=== PATIENT | female | born 1950 | race Caucasian/White ===

== ENCOUNTER 2016-04-28 09:31 | Day surgery (SDC) | payer MEDICARE ==
[~2016-04-28 09:31] MED LIST: RINGERS SOLUTION,LACTATED 1,000 ML IV PRN
[2016-04-28] MEDS ORDERED: RINGERS SOLUTION,LACTATED 1,000 ML IV ONE (10:07)
[2016-04-28] MEDS ORDERED: PANTOPRAZOLE SODIUM 40 MG/100 ML PIGGYBACK IV ONE (11:47)
[2016-04-28 12:07] VITALS: BP 150/67
[2016-04-28] MEDS ORDERED: PANTOPRAZOLE SODIUM 40 MG in NORMAL SALINE 100 ML IV ONE (12:15)
--- NOTE | 2016-04-28 20:23 | OR ---
Operative Report - Dictated Report Narrative: Operative Report Date of operation: 04/28/2016 Preoperative diagnosis: Abnormal stomach on CT scan, epigastric pain and bloating, no prior dedicated colon studies Postoperative diagnosis: Small hiatal hernia. Significant gastritis with evidence of chronic bleeding (pathology and CLOtest pending). Normal colonoscopy Operation: EGD with gastric and duodenal biopsies. Colonoscopy Surgeon: Dr Fernandez Anesthesia: [employer] CRNA Indications for procedure: The patient is a 66-year-old female referred by Dr. Martinez. The patient has had epigastric pain and bloating. CT scan suggested gastric mucosal thickening. The patient has had no previous dedicated colon studies. There is no family history of colon cancer. The patient has frequent diarrhea. Findings: Small hiatal hernia. Significant pangastritis with evidence of chronic bleeding (pathology and CLOtest pending. Duodenal biopsy pending. Capacious colon but normal exam to the cecum. Narrative of procedure: The patient was identified preoperatively, and prior to the administration of anesthetic a multidisciplinary timeout was observed EGD: With the patient in the recumbent position, a bite-block was placed, intravenous sedation was administered, and the patient's eyes covered with a towel. The flexible fiberoptic gastroscope was advanced into the posterior pharynx which appeared normal. The supraglottic larynx appeared normal. The cords appeared normal, moved well, and opposed in the midline. The scope was advanced under direct vision into the proximal esophagus which appeared normal. The esophagus appeared freely distensible with normal mucosa. The esophageal mucosa appeared normal down to the gastroesophageal junction which was sharp and noninflamed. There was a small sliding hiatal hernia. The GE junction appeared normally distensible. The scope was advanced into the stomach proper which was insufflated with air. Immediately apparent was a significant pangastritis with friability and flecks of abril blood and prepyloric submucosal hemorrhage. A retroflexed view of the gastric fundus revealed no additional lesions but did demonstrate a small sliding hiatal hernia. The scope was redirected toward the pylorus. The pylorus appeared patent. The scope was advanced into the duodenal bulb which appeared slightly erythematous but otherwise normal. The scope was advanced further to the horizontal portion of the duodenum which appeared normal, specifically the villous architecture appeared well preserved and clear bile was present. A biopsy of player services representative duodenal mucosa was obtained to rule out celiac disease. The biopsy site was seen to be hemostatic. The scope was slowly withdrawn through the duodenal bulb with confirmation that no active ulcer was present. The scope was withdrawn into the stomach and player services representative biopsies of gastric mucosa obtained for CLOtest and pathology. The biopsy sites were seen to be hemostatic. The insufflated air was removed, the scope withdrawn from the patient, and this portion of the procedure terminated. COLONOSCOPY: The patient was then placed in the left lateral position, and the perineum was inspected. There was no evidence of pilonidal disease or skin breakdown. The external appearance of the anus was normal. Sphincter tone was good. The flexible fiberoptic colonoscope was inserted into the rectum which was insufflated with air. The rectal mucosa and submucosal vascular pattern appeared normal, the prep was seen to be complete. The scope was advanced through the sigmoid colon, up the descending colon, and around the splenic flexure where the triangular haustral architecture of the transverse colon was seen. The scope was advanced across the transverse colon, around the hepatic flexure to the cecum, where the confluence of tenia and the ileocecal valve were identified. The mucosa at this level appeared normal. The scope was then slowly withdrawn in a circular fashion so that all aspects of colonic mucosa were inspected. The colon was somewhat capacious and caliber relatively normal in course. The haustral architecture appeared well preserved throughout with no evidence of external compression. The mucosa and submucosal vascular pattern appeared normal, specifically there was no gross evidence to suggest colitis or inflammatory bowel disease and no AV malformations were seen. No diverticulosis was demonstrated. No polyps were encountered. The scope was gradually withdrawn to the level of the rectum. As much insufflated air as possible was removed. The scope was withdrawn from the patient and the procedure terminated. The patient tolerated the anesthetic and procedure well without complication and was transferred back to the ambulatory surgery area awake and in stable condition. The patient remained stable throughout a period of postoperative observation. She denied abdominal discomfort, was able to tolerate by mouth intake, and was up without assistance. I shared the operative findings with the patient and she was given copies of the photographs which appear in the medical record. She was discharged home with instructions not to engage in hazardous activity today , but may resume normal activity tomorrow, and advance diet as tolerated. She is to continue those medications as listed in the history and physical exam. I made arrangements to contact her with the biopsy reports and will make additional recommendations for treatment and follow-up based upon those results. RECOMMENDATION: She should have a digital rectal exam/occult blood determination at the time of any pelvic exam with tentative colon surveillance in 10 years depending upon findings and symptoms Reviewed and electronically signed
== END 2016-04-28 09:32 | disposition home or self-care (01) ==
LOC: AMB 09:31
PROVIDERS: ATTEND Surgery
PROC: 0DB68ZX Excision of Stomach, Via Natural or Artificial Opening Endoscopic, Diagnostic (ICD-10-PCS; 2016-04-28)
PROC: 0DJD8ZZ Inspection of Lower Intestinal Tract, Via Natural or Artificial Opening Endoscopic (ICD-10-PCS; principal; 2016-04-28 10:50)
PROC: 0DB98ZX Excision of Duodenum, Via Natural or Artificial Opening Endoscopic, Diagnostic (ICD-10-PCS; 2016-04-28 10:50)
DX: Z12.11 Encounter for screening for malignant neoplasm of colon (principal); K29.51 Unspecified chronic gastritis with bleeding; K44.9 Diaphragmatic hernia without obstruction or gangrene; I48.91 Unspecified atrial fibrillation; I10 Essential (primary) hypertension; D64.9 Anemia, unspecified; Z68.30 Body mass index [BMI] 30.0-30.9, adult
CPT/HCPCS: 43239; 87081; G0121

== ENCOUNTER 2016-07-18 09:57 | Observation (INO) | payer MEDICARE ==
[2016-07-18] MEDS ORDERED: KETOROLAC TROMETHAMINE 30 MG/ML VIAL IV ONE (10:15)
[2016-07-18] MEDS ORDERED: NORMAL SALINE 1,000 ML IV ONE (10:15)
--- NOTE | 2016-07-18 10:16 | ERNOTE ---
Abdominal HPI - Narrative Date of Service: 07/18/16 - General Chief Complaint: Abdominal Pain Time Seen by Provider: 07/18/16 10:11 Source: patient, RN notes reviewed Exam Limitations: clinical condition - Immun/Allergies/Home Medications Immunizatons: IMMUNIZATION HX Immunizations Up to Date Yes History of Influenza Vaccine Yes Hx Pneumococcal Vaccination Yes Allergies/Adverse Reactions: Allergies Penicillins Allergy (Mild, Verified 07/18/16 10:47) Hives Home Medications: HOME MEDICATIONS Aspirin [Aspirin Enteric Coated] 81 mg PO DAILY 04/23/16 [Last Taken Unknown] Lisinopril/Hydrochlorothiazide [Zestoretic 20-25 mg Tablet] 1 each PO DAILY [Last Taken Unknown] Metoprolol Succinate [Toprol Xl] 100 mg PO HS 04/23/16 [Last Taken Unknown] Omega3/Dha/Epa/Fish Oil/Vit D3 [Fish Oil + Vitamin D-3 Softgel] 1 each PO BID [Last Taken Unknown] Pantoprazole Sodium [Protonix] 40 mg PO DAILY 07/18/16 [Last Taken Unknown] - Pain Score Pain Score #1 Pain Score: 10 Abdominal Pain Onset Location: RLQ Pain Radiation: flank - History of Present Illness Narrative: 66 y/o pleasant female brought to the ED from home by a friend with abdominal pain that began last evening. It is in the right lower quadrant and initially felt like menstrual cramps. The pain has been gradually worsening. She denies any associated symptoms. She appears very uncomfortable and is not able to sit still. She has had a cough recently and reports she thought she had pulled a muscle while coughing. Date (Duration): 07/17/16 Timing: getting worse Quality: severe, sharpness, stabbing Activities at Onset: other - Coughing Modifying Factors - (Improves): Present: movement, other - standing Modifying Factors - (Worsens): Present: coughing, rest, lying down Associated Symptoms: Absent: headache, chest pain, diaphoresis, diarrhea-gross blood, diarrhea-mucous, fever/chills, heartburn, nausea, vomiting, shortness of breath, syncope Prior Abdominal Problems: Present: none Prior Treatment: Absent: recently seen Review of Systems - Review of Systems Constitutional: Present: See HPI EYE: Present: no symptoms reported ENT: Present: no symptoms reported Respiratory: Present: cough. Absent: shortness of breath Cardiology: Absent: chest pain, edema Gastrointestinal/Abdominal: Present: abdominal pain. Absent: nausea, vomiting, diarrhea, constipation Genitourinary: Absent: frequency, dysuria, hematuria Musculoskeletal: Present: back pain. Absent: neck pain Skin: Absent: rash, lesions Neurological: Absent: headache, dizziness/light-headedness Endocrine: Present: no symptoms reported Hematologic/Lymphatic: Present: no symptoms reported Psych: Present: no symptoms reported - Patient's Past Medical History Patient History - Medical: Anemia, Anxiety Patient History - Cardiac/Respiratory: Atrial Fibrillation, Hypertension Patient History - Cancer: No Hx of Cancer Patient History - Surgical Procedures: Colonoscopy, EGD, Hysterectomy, ENT Patient History - Other: None LMP (females 10-50): Menopausal - Family History Brother Family History - Medical: Other Family History - Cardiac/Respiratory: No pertinent hx Family History - Cancer: No pertinent family hx Father Family History - Medical: , Other Family History - Cardiac/Respiratory: No pertinent hx Family History - Cancer: No pertinent family hx Mother Family History - Medical: , No pertinent hx Family History - Cardiac/Respiratory: Other Family History - Cancer: No pertinent family hx - Social History Living Situations: home Abuse History: No History of abuse Psych History: No pertinent hx Smoking Status: Never smoker Alcohol Use: occasionally Drug Use: none - Immunizations Immunizations Up to Date: Yes Hx Pneumococcal Vaccination: Yes History of Influenza Vaccine: Yes Physical Exam - Physical Exam General Appearance: Present: wd/wn, alert, moderate distress, other - Unable to sit still, pacing Eye Exam: Normal inspection: bilateral Neck: Present: normal inspection, nontender, supple, full range of motion Respiratory: Present: no respiratory distress, normal breath sounds, no accessory muscle use, chest nontender, lungs clear Cardiovascular/Chest: Present: regular rate, rhythm, no murmur, normal peripheral pulses Gastrointestinal/Abdominal: Present: soft, no organomegaly, tenderness - RLQ, severe with light palpation, abnormal bowel sounds - hyperactive, distended. Absent: mass, hernia Back Exam: Present: no vertebral tenderness, CVA tenderness (R). Absent: CVA tenderness (L) Extremity Exam: Present: normal inspection, normal range of motion, no edema Neurological Exam: Present: alert, oriented, normal mood/affect, no motor/ sensory deficits Skin Exam: Present: normal color, warm/dry ED Progress - Results and Orders Patient's Lab Results:: I have reviewed the patient's lab results. - Vital Signs Patient's Vital Signs:: I have reviewed the patient's vital signs. Vital Signs: Vital Signs 07/18/16 10:07 Temperature 36.4 C L Pulse Rate 71 Respiratory 20 Rate Blood Pressure 119/47 - X-Ray X-Ray #1 X-Ray: chest Interpretation: Reviewed by me X-ray Comments: No acute cardiopulmonary findings - CT/Ultrasound CT/Ultrasound Narrative: Technique: CT Abdomen/Pelvis W/ Contrast Findings: Lung bases demonstrate some dependent atelectasis. There is some fatty infiltration of the liver. No intrahepatic biliary ductal dilatation. No focal hepatic parenchymal lesion. The gallbladder demonstrates no calcified gallstones or secondary signs of inflammatory change. The pancreas enhances homogenously. No peripancreatic inflammatory change. The spleen is unremarkable. Adrenal glands are within normal limits. There are renal cysts identified bilaterally. No obstructive uropathy. No nephrolithiasis. Small hiatal hernia. No evidence for intestinal obstruction. The appendix is normal. No pericolonic inflammatory change. The bladder is unremarkable. Uterus and adnexa are surgically absent. Within the right iliac is muscle there is a 5.4 x 3.6 cm hyperdense fluid collection tracking inferiorly from the mid abdomen into the right lower quadrant. There is extensive edema and inflammation surrounding the muscle belly both medially and laterally superficially as well as into the mesentery and tracking into the right lower quadrant. Findings are highly suspicious for intramuscular hematoma and hemorrhage , clinical correlation. No free air. There is atherosclerosis of the aorta. Osseous structures demonstrate no suspicious abnormality. IMPRESSION: 1. Findings suspicious for right iliacus intramuscular hematoma extending laterally to the superficial soft tissues and medially into the mesentery and inferiorly into the right lower quadrant with edema and inflammation, clinical correlation. Chronic findings are as above. Electronically signed by Saurabh Eugene M.D.. - Progress/Reassessment Chief Complaint: Abdominal Pain Progress:: Improved Progress Note-Subjective: 07/18/16 11:49 Some improvement in pain with Toradol and Morphine 4mg but continues to have severe tenderness with palpation or any movement. WBC elevated at 12.3. UA negative for hematuria making ureteral colic much less likely. CT abd/pelvis ordered with contrast to further evaluate. 07/18/16 15:11 Continues to have pain but does not want additional medication right now. Appears uncomfortable, unable to lay still on cart. Dr. Fernandez contacted regarding hematoma on CT. He asserted that this is not something that requires surgical intervention. Dr. Martinez contacted regarding patient as he is her PCP. Discussed admitting for pain control and further monitoring. Dr. Martinez recommended transfer for further management. Contacted Dr. Han (general surgeon at [facility]) who agreed with Dr. Fernandez that this is not a surgical issue, as even if the bleeding were to continue (which he felt was extremely unlikely), the problem would be addressed with interventional radiology. Again spoke with Dr. Martinez with this information. He does not feel comfortable keeping the patient here, as we do not have interventional radiology available. Contacted the ED at [facility] for transfer at [address] Boyer. He was uncertain of the advantage of transferring the patient as she would have the same services available there related to this problem as she does here. He was going to contact their hospitalist and then call me back. Spoke with Dr. Martinez regarding difficulty getting the patient accepted at [facility]. He reiterated that he did not feel that the patient should be admitted here and wants her to be transferred. Spoke with Dr. Boyer at [facility] at 1620, he accepts the patient for transfer. Their hospitalist has agreed to take the patient as well for pain control and monitoring, however did voice concerns over the appropriateness of the transfer. 07/18/16 16:50 Director of inpatient services contacted by ER nurse manager integrity, Dayana Morse RN. Recommended contacted Dr. Riley to admit the patient as she is customer operations specialist for the weekend. I contacted Dr. Riley and explained the situation to her - she agrees to admit to observation status for pain control and monitoring. Patient and family agree with plan as well. [facility] notified by nursing staff that patient was no longer being transferred. Patient reports significant improvement in pain after Dilaudid 1 mg IVP but does still appear very uncomfortable with movement. Departure - Departure Clinical Impression: Intra-abdominal hematoma Qualifiers: Encounter type: initial encounter Qualified Code(s): S36.92XA - Contusion of unspecified intra-abdominal organ, initial encounter Disposition: [facility] Condition: Stable
[2016-07-18] MEDS ORDERED: KETOROLAC TROMETHAMINE 30 MG/ML VIAL ONE (10:22)
[2016-07-18 10:44] LABS: Hematocrit 37.8 % (37.0-47.0); Hemoglobin 13.1 gm/dL (12.5-16.0); Mean Cell Volume 88.9 fl (78-100); Mean Corpuscular Hemoglobin 30.8 pg (27-31); Mean Corpuscular Hgb Conc 34.7 g/dl (32-36); Neutrophil # 9.6 K/mm3 (1.3-6.0); Neutrophil % 77.7 % (42-75.0); Platelet Count 456 K/mm3 (150-450); Red Blood Count 4.25 M/mm3 (4.2-5.4); Red Cell Distribution Width 12.5 % (11.5-14.0); White Blood Count 12.3 K/mm3 (4.0-10.5)
[2016-07-18] MEDS ORDERED: MORPHINE SULFATE 4 MG/ML SYRG IV ONE ×2 (10:48→11:48)
[2016-07-18] MEDS ORDERED: ONDANSETRON HCL/PF 2 MG/ML VIAL IV ONE (10:48)
[2016-07-18 10:53] LABS: Albumin * 3.6 gm/dl (3.4-5.0); BUN/Creatinine Ratio 18.9 (9.0-21.6); Bilirubin, Total 0.4 mg/dL (0.0-1.1); Ca. Corrected For Albumin 9.2 mg/dL (8.4-10.2); Calcium * 9.2 mg/dL (7.9-10.9); Carbon Dioxide 27.8 mmol/L (24-32.6); Potassium 3.8 mmol/L (3.4-4.6); Total Protein 7.3 gm/dL (6.2-8.2)
[2016-07-18] MEDS ORDERED: MORPHINE SULFATE 4 MG/ML SYRG ONE ×2 (11:02→11:52)
[2016-07-18] MEDS ORDERED: ONDANSETRON HCL/PF 2 MG/ML VIAL ONE (11:03)
[2016-07-18 11:24] LABS: Urine Bilirubin Negative (NEGATIVE); Urine Blood Negative /ul (NEGATIVE); Urine Ketone Negative (NEGATIVE); Urine Nitrite Negative (NEGATIVE); Urine Protein Negative (NEGATIVE); Urine Specific Gravity 1.025 SP.GR. (1.005-1.010); Urine Urobilinogen Normal (NORMAL)
[2016-07-18 11:38] LABS: Urine Appearance Clear; Urine Bacteria 2+; Urine Color Yellow; Urine Hyaline Cast 0-5 /LPF; Urine RBC None Seen /hpf (0-5)
[2016-07-18] MEDS ORDERED: DIATRIZOATE MEGLU/DIATRIZO SOD 30 ML BTL PO ONE (12:00)
[2016-07-18] MEDS ORDERED: HYDROmorphone HCL 1 MG/ML DISP.SYRIN IV ONE ×2 (15:31→16:57)
[2016-07-18] MEDS ORDERED: HYDROmorphone HCL 1 MG/ML DISP.SYRIN ONE ×2 (15:35→17:00)
[2016-07-18] MEDS ORDERED: HYDROmorphone HCL 1 MG/ML DISP.SYRIN IV PRN (17:59)
[2016-07-18] MEDS: HYDROmorphone HCL 2 MG/ML VIAL IV PRN ×2 (19:00→22:36)
--- NOTE | 2016-07-18 20:57 | HP ---
Chief Complaint - Chief Complaint Date of Service: 07/18/16 Time of Service: 20:45 Chief Complaint: Right lower quadrant pain, cough History of Present Illness: 66 years old female adm to the hospital with reports of right lower quadrant pain that began x2 days. pt stated she had episodes of constant cough with sputum; she noticed later on in the day her right side was extremely painful and it got more difficult to move. PMH significant for A-fib and hypertension. IN ER CXR- No acute cardiopulmonary abnormality. CT ABD: Findings suspicious for right iliacus intramuscular hematoma extending laterally to the superficial soft tissues and medially into the mesentery and inferiorly into the right lower quadrant with edema and inflammation, clinical correlation. WBC 12.3 , PLT 452, BUn/ Cre 23/1.22, GFR 47. Pt stated she haven't eaten all day or had anything to drink until later in the day. She denies melena, hematuria, nausea, vomiting or diarrhea. ER notes reviewed and pt isn't a surgical candidate, if bleeding should resume she will need to be transferred out to Facility that provided interventional radiology. Pt pain is well control as of current time. Plan of care discussed with pt and they verbalized understanding and agrees. - Patient's Past Medical History Patient History - Medical: Anemia, Anxiety Patient History - Cardiac/Respiratory: Atrial Fibrillation, Hypertension Patient History - Cancer: Skin Patient History - Surgical Procedures: Colonoscopy, EGD, Hysterectomy, ENT Patient History - Other: None LMP (females 10-50): Menopausal - Family History Brother Family History - Medical: No pertinent hx, History Unknown, Other Family History - Cardiac/Respiratory: No pertinent hx, History Unknown Family History - Cancer: No pertinent family hx, History Unknown Father Family History - Medical: , No pertinent hx Family History - Cardiac/Respiratory: No pertinent hx, History Unknown Family History - Cancer: No pertinent family hx, History Unknown Mother Family History - Medical: , No pertinent hx Family History - Cardiac/Respiratory: No pertinent hx, History Unknown Family History - Cancer: No pertinent family hx, History Unknown - Social History Living Situations: spouse Abuse History: No History of abuse Psych History: No pertinent hx Smoking Status: Never smoker Have you smoked in the past 12 months: No Patient requests Smoking Cessation Consult: No Initiate information on Smoking Cessation: No Alcohol Use: occasionally Drug Use: none - Immunizations Immunizations Up to Date: Yes Hx Pneumococcal Vaccination: Yes History of Influenza Vaccine: Yes Review Of Systems (GEN) - Review of Systems Generalized/Overall Review: Present: No Symptoms Reported EENTM: Present: No Symptoms Reported Respiratory: Present: No Symptoms Reported Cardiac: Present: No Symptoms Reported Abdominal: Present: Abdominal Pain Genitourinary: Present: No Symptoms Reported Musculoskeletal: Present: No Symptoms Reported Neurological: Present: No Symptoms Reported Skin: Present: No Symptoms Reported Endocrine: Present: No Symptoms Reported Immunizations: IMMUNIZATION HX Immunizations Up to Date Yes History of Influenza Vaccine Yes Hx Pneumococcal Vaccination Yes Allergies/Adverse Reactions: Allergies Allergy/AdvReac Type Severity Reaction Status Date / Time Penicillins Allergy Mild Hives Verified 07/18/16 17:33 Home Medications: HOME MEDICATIONS Aspirin [Aspirin Enteric Coated] 81 mg PO DAILY 04/23/16 [Last Taken Unknown] Lisinopril/Hydrochlorothiazide [Zestoretic 20-25 mg Tablet] 1 each PO DAILY [Last Taken 07/18/16] Metoprolol Succinate [Toprol Xl] 100 mg PO HS 04/23/16 [Last Taken 07/17/16] Pantoprazole Sodium [Protonix] 40 mg PO DAILY 07/18/16 [Last Taken 07/18/16] Exam - Exam Vital Signs: Vital Signs - Last Taken Temp 36.8 C 07/18/16 19:17 Pulse 86 07/18/16 19:17 Resp 20 07/18/16 19:17 BP 115/75 07/18/16 19:17 Pulse Ox 96 07/18/16 19:17 Constitutional: Present: Alert, Oriented x3, Cooperative, Well developed, No distress ENT Exam: Present: moist mucous membranes Eye Exam: bilateral eye: PERRL Neck: Present: full range of motion Back Exam: Present: normal inspection Breasts: Present: Exam deferred Respiratory: Present: chest non-tender, lungs clear, normal breath sounds, no respiratory distress, no accessory muscle use Cardiovascular/Chest: Present: normal peripheral pulses, regular rate, rhythm, no chest tenderness, no edema Peripheral Pulses: dorsalis-pedis (R): 2+, dorsalis-pedis (L): 2+ Abdomen: Present: Normal bowel sounds, soft, nondistended, no rebound tenderness , other - right lower quadrant pain Extremity: Present: normal range of motion, non-tender, normal inspection, no pedal edema Skin Exam: Present: normal color, warm/dry Neurologic: Present: oriented x 3 Appearance: Present: appropriate appearance Eye contact: Present: cooperative, good eye contact Thoughts: Present: normal thought pattern Diagnostic Studies: Laboratory Results WBC 12.3 K/mm3 (4.0-10.5) H 07/18/16 10:30 RBC 4.25 M/mm3 (4.2-5.4) 07/18/16 10:30 Hgb 13.1 gm/dL (12.5-16.0) 07/18/16 10:30 Hct 37.8 % (37.0-47.0) 07/18/16 10:30 MCV 88.9 fl (78-100) 07/18/16 10:30 MCH 30.8 pg (27-31) 07/18/16 10:30 MCHC 34.7 g/dl (32-36) 07/18/16 10:30 RDW 12.5 % (11.5-14.0) 07/18/16 10:30 Plt Count 456 K/mm3 (150-450) H 07/18/16 10:30 MPV 9.0 fl (6.0-9.5) 07/18/16 10:30 Immature Gran % (Auto) 0.30 % (0.001-0.429) 07/18/16 10:30 Immature Gran # (Auto) 0.04 K/mm3 (0.000-0.0310) H 07/18/16 10:30 Neutrophils % 77.7 % (42-75.0) H 07/18/16 10:30 Lymphocytes % 13.9 % (20-51) L 07/18/16 10:30 Monocytes % 5.8 % (0.0-9) 07/18/16 10:30 Eosinophils % 1.8 % (0.0-3.0) 07/18/16 10:30 Basophils % 0.5 % (0.0-1.0) 07/18/16 10:30 Nucleated RBC % 0.0 k/mm3 (0-1) 07/18/16 10:30 Neutrophils # 9.6 K/mm3 (1.3-6.0) H 07/18/16 10:30 Lymphocytes # 1.7 k/mm3 (1.5-3.5) 07/18/16 10:30 Monocytes # 0.7 k/mm3 (0.0-1.0) 07/18/16 10:30 Eosinophils # 0.2 k/mm3 (0.0-0.7) 07/18/16 10:30 Absolute Basophils 0.1 k/mm3 (0.0-0.1) 07/18/16 10:30 Sodium 139 mmol/L (132-142) 07/18/16 10:30 Plasma Sodium 140 mmol/L (130-142) 07/18/16 10:30 Potassium 3.8 mmol/L (3.4-4.6) 07/18/16 10:30 Chloride 100 mmol/L (97-106) 07/18/16 10:30 Carbon Dioxide 27.8 mmol/L (24-32.6) 07/18/16 10:30 Anion Gap 15.0 mmol/L (6.8-13.8) H 07/18/16 10:30 BUN 23 mg/dL (3-23) 07/18/16 10:30 Creatinine 1.22 mg/dL (0.4-1.4) 07/18/16 10:30 Est GFR (Non-Af Amer) 47 mL/min (60-130) L D 07/18/16 10:30 BUN/Creatinine Ratio 18.9 (9.0-21.6) 07/18/16 10:30 Random Glucose 157 mg/dL (70-110) H 07/18/16 10:30 Calcium 9.2 mg/dL (7.9-10.9) 07/18/16 10:30 Calcium Adj for Albumin 9.2 mg/dL (8.4-10.2) 07/18/16 10:30 Total Bilirubin 0.4 mg/dL (0.0-1.1) 07/18/16 10:30 AST 23 U/L (0-48) 07/18/16 10:30 ALT 33 U/L (19-67) 07/18/16 10:30 Alkaline Phosphatase 87 U/L (50-170) 07/18/16 10:30 Total Protein 7.3 gm/dL (6.2-8.2) 07/18/16 10:30 Albumin 3.6 gm/dl (3.4-5.0) 07/18/16 10:30 Urine Color Yellow 07/18/16 11:10 Urine Appearance Clear 07/18/16 11:10 Urine pH 6.0 pH (5.0-7.0) 07/18/16 11:10 Ur Specific [place] 1.025 SP.GR. (1.005-1.010) 07/18/16 11:10 Urine Protein Negative mg/dL (NEGATIVE) 07/18/16 11:10 Urine Glucose (UA) Negative mg/dL (NEGATIVE) 07/18/16 11:10 Urine Ketones Negative mg/dL (NEGATIVE) 07/18/16 11:10 Urine Blood Negative /ul (NEGATIVE) 07/18/16 11:10 Urine Nitrate Negative (NEGATIVE) 07/18/16 11:10 Urine Bilirubin Negative mg/dl (NEGATIVE) 07/18/16 11:10 Urine Urobilinogen Normal EU/dl (NORMAL) 07/18/16 11:10 Ur Leukocyte Esterase 75 /ul (NEGATIVE) H 07/18/16 11:10 Urine RBC None seen /hpf (0-5) 07/18/16 11:10 Urine WBC 5-10 /hpf (0-5) H 07/18/16 11:10 Ur Epithelial Cells 0-5 /hpf (0-5) 07/18/16 11:10 Urine Bacteria 2+ (NONE) H 07/18/16 11:10 Hyaline Casts 0-5 /LPF (NONE) H 07/18/16 11:10 Urine Culture Comments Culture to follow 07/18/16 11:10 CT ABD: Findings suspicious for right iliacus intramuscular hematoma extending laterally to the superficial soft tissues and medially into the mesentery and inferiorly into the right lower quadrant with edema and inflammation, clinical correlation. Chronic findings are as above. Assessment/Plan - Narrative Narrative: Intra-abdominal hematoma- seen on CT ABD Findings suspicious for right iliacus intramuscular hematoma extending laterally to the superficial soft tissues and medially into the mesentery and inferiorly into the right lower quadrant with edema and inflammation, clinical correlation. Hypertension-stable On adm BP 115/75 Resume home dose of medications A-fib Pt stated she is only on aspirin Rate control with Metoprolol 100mg Q HS Code status: Full GI ppx:protonix VTE ppx:SCD and ambulate Anticipate discharge home 0-1 day and follow up with PCP Time 30 minutes previous records reviewed. - Assessment/Plan (1) Intra-abdominal hematoma Problem: Acute Qualifiers: Encounter type: initial encounter Qualified Code(s): S36.92XA - Contusion of unspecified intra-abdominal organ, initial encounter (2) A-fib Problem: Chronic (3) Hypertension Problem: Chronic Qualifiers: Hypertension type: essential hypertension Qualified Code(s): I10 - Essential (primary) hypertension
[2016-07-18] MEDS: METOPROLOL SUCCINATE 100 MG TABLET.SA PO SCH (21:41)
[2016-07-19] MEDS: HYDROmorphone HCL 2 MG/ML VIAL IV PRN ×2 (01:47→07:47)
[2016-07-19 05:07] LABS: Hematocrit 30.8 % (37.0-47.0); Hemoglobin 10.3 gm/dL (12.5-16.0); Mean Cell Volume 91.7 fl (78-100); Mean Corpuscular Hemoglobin 30.7 pg (27-31); Mean Corpuscular Hgb Conc 33.4 g/dl (32-36); Mean Platelet Volume 9.1 fl (6.0-9.5); Neutrophil # 7.1 K/mm3 (1.3-6.0); Neutrophil % 65.2 % (42-75.0); Platelet Count 361 K/mm3 (150-450); Red Blood Count 3.36 M/mm3 (4.2-5.4); Red Cell Distribution Width 12.9 % (11.5-14.0); White Blood Count 10.9 K/mm3 (4.0-10.5)
[2016-07-19 05:35] LABS: Albumin * 3.2 gm/dl (3.4-5.0); Anion Gap 9.7 mmol/L (6.8-13.8); BUN/Creatinine Ratio 16.8 (9.0-21.6); Bilirubin, Total 0.4 mg/dL (0.0-1.1); Calcium * 8.7 mg/dL (7.9-10.9); Carbon Dioxide 32.6 mmol/L (24-32.6); Potassium 3.3 mmol/L (3.4-4.6); Total Protein 6.4 gm/dL (6.2-8.2)
[2016-07-19] MEDS ORDERED: POTASSIUM CHLORIDE 20 MEQ TABLET.SA PO ONE (07:15)
[2016-07-19] MEDS: PANTOPRAZOLE SODIUM 40 MG TABLET.EC PO SCH (08:50)
[2016-07-19] MEDS: LISINOPRIL 20 MG TABLET PO SCH (08:51)
[2016-07-19] MEDS: HYDROCHLOROTHIAZIDE 25 MG TABLET PO SCH (08:51)
[2016-07-19] MEDS ORDERED: [UNRECOGNIZED DRUG - OTHER] PO SCH (09:00)
[2016-07-19] MEDS ORDERED: LISINOPRIL PO SCH (09:00)
[2016-07-19] MEDS ORDERED: HYDROCHLOROTHIAZIDE PO SCH (09:00)
[2016-07-19] MEDS ORDERED: traMADol HCL 50 MG TABLET PO PRN ×2 (09:17→10:52)
[2016-07-19] MEDS ORDERED: ACETAMINOPHEN 325 MG TABLET PO PRN (09:18)
[2016-07-19] MEDS ORDERED: HYDROcodone/ACETAMINOPHEN 1 EACH TABLET PO PRN (11:45)
[2016-07-19] MEDS: HYDROcodone/ACETAMINOPHEN 1 EACH TABLET PO PRN ×3 (12:32→22:17)
--- NOTE | 2016-07-19 14:35 | PN ---
Subjective - Date and Time Seen Date: 07/19/16 Time: 14:24 Subjective Narrative: Patient started on Tramadol; however, she complained of feeling lightheaded and just generalized not feeling quite right after taking the Tramadol. Tramadol was discontinued and the patient was switched to Hydrocodone-APAP. Patient apparently had an episode of heart racing approximately 20 minutes after getting her first dose of Hydrocodone. The patient admits that she has these same episodes at home and has had them for many years and states that it is just her heart fibrillating and it only lasts for a little while before it resolves. The patient is on a baby aspirin at home and no additional anticoagulation. She states she was in the hospital a while back (2011) for atrial fibrillation with heart rate in the 190s and it was at this time that she was first diagnosed with afib. She states that she has never been on anticoagulation and has never been on anything blood thinner related other than a baby aspirin daily. The patient's episode of racing heart had resolved by the time I saw the patient again. She refuses to be hooked up to telemetry. Objective - Review of Systems Generalized/Overall Review: Reports: Weakness, Fatigue EENTM: Reports: No Symptoms Reported Respiratory: Reports: Cough Cardiac: Reports: Palpitations. Denies: Chest Pain Abdominal: Reports: Abdominal Pain Genitourinary Symptoms: Reports: No Symptoms Reported Musculoskeletal Complaints: Reports: Back Pain, Muscle Pain Neurological: Reports: No Symptoms Reported Skin: Reports: Bruising Endocrine: Reports: No Symptoms Reported Misc: All systems neg except as marked - Vitals Vitals: Last Vital Signs Temp 36.6 C 07/19/16 14:07 Pulse 92 07/19/16 14:07 Resp 20 07/19/16 14:07 BP 133/48 07/19/16 14:07 Pulse Ox 96 07/19/16 14:07 - Abnormal Lab Findings Abnormal Lab Findings: Abnormal Lab Results 07/19/16 07/19/16 Range/Units 04:58 04:58 WBC 10.9 H (4.0-10.5) K/mm3 RBC 3.36 L (4.2-5.4) M/mm3 Hgb 10.3 L (12.5-16.0) gm/dL Hct 30.8 L (37.0-47.0) % Immature Gran % (Auto) 0.50 H (0.001-0.429) % Immature Gran # (Auto) 0.06 H (0.000-0.0310) K/mm3 Monocytes % 10.0 H (0.0-9) % Eosinophils % 3.2 H (0.0-3.0) % Neutrophils # 7.1 H (1.3-6.0) K/mm3 Monocytes # 1.1 H (0.0-1.0) k/mm3 Potassium 3.3 L (3.4-4.6) mmol/L Albumin 3.2 L (3.4-5.0) gm/dl - Exam Constitutional: Present: Alert, Oriented x3, Cooperative, Well developed, Well nourished, Mild distress - secondary to pain which is made worse with any movement ENT Exam: Present: hearing grossly normal, moist mucous membranes Respiratory: Present: lungs clear, normal breath sounds, no respiratory distress , no accessory muscle use Cardiovascular/Chest: Present: regular rate, rhythm, no edema Abdomen: Present: soft, tender - TTP RLQ Extremity: Present: normal range of motion, non-tender, normal inspection, no pedal edema, no calf tenderness Skin Exam: Present: warm/dry, no cyanosis, other - Extensive ecchymosis over right lower lateral abdomen and buttock/back Neurologic: Present: no motor/sensory deficits, alert, normal mood/affect, oriented x 3 Appearance: Present: appropriate appearance, appropriate insight, neat, no memory impairment Eye contact: Present: cooperative, good eye contact, normal speech Thoughts: Present: normal thought pattern, no apparent hallucination Assessment/Plan Plan Narrative: IMPRESSION & PLAN: Intra-abdominal Hematoma -CT abd/pelvis with contrast on admission: Findings suspicious for right iliacus intramuscular hematoma extending laterally to the superficial soft tissues and medially into the mesentery and inferiorly into the right lower quadrant with edema and inflammation. -Pain control with hydrocodone-APAP as needed. Avoid IV pain meds unless patient having severe pain that is uncontrolled with PO pain medication. Acute Blood Loss Anemia -Secondary to above -Recheck H/H at 1430 Leukocytosis -WBC count elevated on admission at 12.3 and improved down to 10.9 this AM. -Likely reactive related to hematoma. No indication for antibiotics at present. Continue to monitor clinical course and we will plan to repeat a hemogram in the AM. Hypokalemia -Replaced with KCl 40mEq PO X1 -Recheck BMP in AM Asymptomatic Bacteriuria -Patient denies any urinary symptoms and thus, there is no indication for antibiotic treatment. CHRONIC MEDICAL CONDITIONS: Paroxysmal Atrial Fibrillation: Patient reports a long standing history (at least back to 2011) of intermittent racing heart. She is on metoprolol succinate for rate control. She is only on ASA 81mg at home. [id number] Score=4 [HTN=1, Age=1, Vascular Disease=1 (atherosclerosis of the aorta noted on CT), female=1]. Given the patient's acute hematoma, initiation of anticoagulation is contraindicated at the present time. I would recommend that at follow-up with her PCP that they discuss the risks and benefits of anticoagulation and determine if the patient is an appropriate candidate for anticoagulation. Benign Essential Hypertension: Stable/well controlled. Continue home anti- hypertensive regimen. GERD/Gastritis: Continue home PPI Code status: Full Code GI ppx: Continue home PPI VTE ppx: SCDs and ambulate. No chemical ppx secondary to large hematoma. Disposition: Plan to discharge patient home in AM as long as she is tolerating hydrocodone-APAP and pain is tolerable/controlled. - Problems/Diagnosis (1) Paroxysmal atrial fibrillation Problem: Acute (2) Benign essential hypertension Problem: Acute (3) Intra-abdominal hematoma Problem: Acute Qualifiers: Encounter type: initial encounter Qualified Code(s): S36.92XA - Contusion of unspecified intra-abdominal organ, initial encounter
[2016-07-19 14:46] LABS: Hematocrit 28.4 % (37.0-47.0); Hemoglobin 9.8 gm/dL (12.5-16.0)
[2016-07-19] MEDS: METOPROLOL SUCCINATE 100 MG TABLET.SA PO SCH (20:24)
[2016-07-20] MEDS: HYDROcodone/ACETAMINOPHEN 1 EACH TABLET PO PRN ×3 (02:22→10:40)
[2016-07-20 06:09] LABS: Hematocrit 28.6 % (37.0-47.0); Hemoglobin 9.9 gm/dL (12.5-16.0); Mean Cell Volume 91.1 fl (78-100); Mean Corpuscular Hemoglobin 31.5 pg (27-31); Mean Corpuscular Hgb Conc 34.6 g/dl (32-36); Platelet Count 337 K/mm3 (150-450); Red Blood Count 3.14 M/mm3 (4.2-5.4); Red Cell Distribution Width 12.7 % (11.5-14.0); White Blood Count 8.5 K/mm3 (4.0-10.5)
[2016-07-20 06:19] VITALS: BP 143/71
[2016-07-20 06:20] LABS: Anion Gap 8.9 mmol/L (6.8-13.8); BUN/Creatinine Ratio 12.7 (9.0-21.6); Calcium * 8.8 mg/dL (7.9-10.9); Estimated Creat Clear 68.1; Potassium 3.9 mmol/L (3.4-4.6)
--- NOTE | 2016-07-20 07:03 | PN ---
Subjective - Date and Time Seen Date: 07/20/16 Time: 06:59 Subjective Narrative: patient seen today AOX3 no acute distress, pt stated still have abdominal discomfit with movement. 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 pt stated she have appt Thursday with Dr Ojeda, but considering switching providers. Objective - Review of Systems Generalized/Overall Review: Reports: No Symptoms Reported EENTM: Reports: No Symptoms Reported Respiratory: Reports: No Symptoms Reported Cardiac: Reports: No Symptoms Reported Abdominal: Reports: Abdominal Pain Genitourinary Symptoms: Reports: No Symptoms Reported Musculoskeletal Complaints: Reports: No Symptoms Reported Neurological: Reports: No Symptoms Reported Skin: Reports: No Symptoms Reported Endocrine: Reports: No Symptoms Reported - Vitals Vitals: Last Vital Signs Temp 36.8 C 07/20/16 06:48 Pulse 80 07/20/16 06:48 Resp 18 07/20/16 06:48 BP 143/71 07/20/16 06:48 Pulse Ox 94 07/20/16 06:48 - Abnormal Lab Findings Abnormal Lab Findings: Abnormal Lab Results 07/19/16 07/20/16 07/20/16 Range/Units 14:39 05:50 05:50 RBC 3.14 L (4.2-5.4) M/mm3 Hgb 9.8 L 9.9 L (12.5-16.0) gm/dL Hct 28.4 L 28.6 L (37.0-47.0) % MCH 31.5 H (27-31) pg Carbon Dioxide 34.0 H (24-32.6) mmol/L - Exam Constitutional: Present: Alert, Oriented x3, Cooperative, No distress, Young ENT Exam: Present: moist mucous membranes Neck: Present: full range of motion Respiratory: Present: chest non-tender, lungs clear, normal breath sounds, no respiratory distress, no accessory muscle use Cardiovascular/Chest: Present: normal peripheral pulses, regular rate, rhythm, no chest tenderness, no edema, no gallop Abdomen: Present: Normal bowel sounds, soft, nondistended, no rebound tenderness , other - Right quadrant pain Extremity: Present: normal range of motion, non-tender, normal inspection, no pedal edema, no calf tenderness Skin Exam: Present: normal color, warm/dry Neurologic: Present: oriented x 3 Appearance: Present: appropriate appearance Eye contact: Present: cooperative Thoughts: Present: normal thought pattern Assessment/Plan Plan Narrative: Intra-abdominal hematoma- seen on CT ABD Findings suspicious for right iliacus intramuscular hematoma extending laterally to the superficial soft tissues and medially into the mesentery and inferiorly into the right lower quadrant with edema and inflammation, clinical correlation. Acute blood loss anemia-- secondary to intra abdominal hematoma On adm Hgb 12.3--->9.9 trending down continue to monitor Hypertension-stable Resume home dose of medications A-fib Pt stated she is only on aspirin and had episode of a-fib several years ago Rate control with Metoprolol 100mg Q HS Hypokalemia- WNL On adm K+ 3.3---> 3.9 Supplemented Monitor BMP Code status: Full GI ppx:protonix VTE ppx:SCD and ambulate Anticipate discharge home 0-1 day and follow up with PCP Time 15 minutes - Problems/Diagnosis (1) Intra-abdominal hematoma Problem: Acute Qualifiers: Encounter type: initial encounter Qualified Code(s): S36.92XA - Contusion of unspecified intra-abdominal organ, initial encounter (2) Acute blood loss anemia Problem: Acute (3) A-fib Problem: Chronic (4) Hypertension Problem: Chronic Qualifiers: Hypertension type: essential hypertension Qualified Code(s): I10 - Essential (primary) hypertension (5) Hypokalemia Problem: Resolved
[2016-07-20] MEDS: LISINOPRIL 20 MG TABLET PO SCH (09:25)
[2016-07-20] MEDS: HYDROCHLOROTHIAZIDE 25 MG TABLET PO SCH (09:25)
[2016-07-20] MEDS: PANTOPRAZOLE SODIUM 40 MG TABLET.EC PO SCH (09:26)
--- NOTE | 2016-07-20 09:34 | DS ---
(1) Intra-abdominal hematoma Problem: Acute Qualifiers: Encounter type: initial encounter Qualified Code(s): S36.92XA - Contusion of unspecified intra-abdominal organ, initial encounter (2) Paroxysmal atrial fibrillation Problem: Chronic (3) Benign essential hypertension Problem: Chronic Description of Stay: ADMISSION DATE: 07.18.2016 DISCHARGE DATE: 07.20.2016 ADMISSION HPI by POLINA Baker: PROBLEM BASED HOSPITAL COURSE: Intra-abdominal Hematoma -Pain control with hydrocodone-APAP as needed. Acute Blood Loss Anemia -Secondary to above -Hemoglobin trended during admission and was stable at 9.9 (9.8, 10.3, 13.1) the morning of discharge. Leukocytosis - Resolved -WBC count elevated on admission at 12.3 and improved down to 10.9 the following AM. WBC count WNL on the day of discharge. -Likely reactive related to hematoma. Patient was not given any antibiotics during her admission. Hypokalemia - Resolved -Replaced with KCl 40mEq PO X1 on 07.19.2016 -Potassium level improved and back WNL on day of discharge Asymptomatic Bacteriuria -Patient denies any urinary symptoms and thus, there is no indication for antibiotic treatment. CHRONIC MEDICAL CONDITIONS: Paroxysmal Atrial Fibrillation: Patient reports a long standing history (at least back to 2011) of intermittent racing heart. She is on metoprolol succinate for rate control. She is only on ASA 81mg at home. [id number] Score=4 [HTN=1, Age=1, Vascular Disease=1 (atherosclerosis of the aorta noted on CT), female=1]. Given the patient's acute hematoma, initiation of anticoagulation is contraindicated at the present time. I would recommend that at follow-up with her PCP that they discuss the risks and benefits of anticoagulation and determine if the patient is an appropriate candidate for anticoagulation. Benign Essential Hypertension: Stable/well controlled. Continue home anti- hypertensive regimen. GERD/Gastritis: Continue home PPI FOLLOW-UP APPOINTMENTS: -Patient already scheduled to see her PCP, Dr. Martinez, on 07.21.2016 @ 0900 and patient was instructed to keep this appointment. NEW OR CHANGED MEDICATIONS: Hydrocodone-APAP 5-325mg 1 tab PO q4h PRN pain #30 DISCONTINUED MEDICATIONS: None RADIOLOGY: CXR on 07.18.2016: "No acute cardiopulmonary process detected." CT Abd/Pelvis with Contrast on 07.18.2016: "Findings suspicious for right iliacus intramuscular hematoma extending laterally to the superficial soft tissues and medially into the mesentery and interiorly into the right lower quadrant with edema and inflammation." Procedures Performed: none Results and Findings: Laboratory Tests 07/18/16 07/19/16 07/19/16 10:30 04:58 14:39 WBC 12.3 H 10.9 H Hgb 13.1 10.3 L 9.8 L Hct 37.8 30.8 L 28.4 L Plt Count 456 H 361 07/20/16 05:50 WBC 8.5 D Hgb 9.9 L Hct 28.6 L Plt Count 337 Discharge Disposition: Home self care Disposition: Home self-care Condition: Stable Discharge Activity: Activity as tolerated Discharge Diet: General/regular food Additional Patient Instructions (free text): Patient already scheduled to see PCP, Dr. Martinez, on 07.21.2016 @ 9:00AM. Patient instructed to keep this follow-up appointment. Prescriptions (Any new or edited meds): HYDROcodone/ACETAMINOPHEN [[place] 5-325] 1 each PO Q4H PRN #30 tablet PRN Reason: Pain Complete Home Medications List: Complete Home Medication List: Aspirin [Aspirin Enteric Coated] 81 mg PO DAILY 04/23/16 Lisinopril/Hydrochlorothiazide [Zestoretic 20-25 mg Tablet] 1 each PO DAILY Metoprolol Succinate [Toprol Xl] 100 mg PO HS 04/23/16 Pantoprazole Sodium [Protonix] 40 mg PO DAILY 07/18/16 HYDROcodone/ACETAMINOPHEN [[place] 5-325] 1 each PO Q4H PRN #30 tablet 07/20/16
== END 2016-07-20 11:00 | disposition home or self-care (01) ==
LOC: ER 09:57 → MS 16:52
PROVIDERS: ADMIT Internal Medicine; ATTEND Internal Medicine
DX: S36.892A Contusion of other intra-abdominal organs, initial encounter (principal); I48.0 Paroxysmal atrial fibrillation; I10 Essential (primary) hypertension; D62 Acute posthemorrhagic anemia; E87.6 Hypokalemia; D72.829 Elevated white blood cell count, unspecified; F41.9 Anxiety disorder, unspecified
CPT/HCPCS: 36415; 71020; 74177; 80048; 80053; 81001; 85014; 85018; 85025; 85027; 87086; 96374; 96375; 96376; 99284; G0378